=== PATIENT | male | born 1950 | race Caucasian/White ===

== ENCOUNTER 2016-09-30 21:48 | Observation (INO) ==
[2016-09-30] MEDS ORDERED: NITROGLYCERIN 2% OINT 1 INCH/GM PACK TOP STA (22:45)
[2016-09-30] MEDS ORDERED: ASPIRIN 325 MG TABLET PO STA (22:45)
[2016-09-30] MEDS ORDERED: METOPROLOL TARTRATE 25 MG TABLET PO STA (22:45)
[2016-09-30] MEDS ORDERED: ONDANSETRON 4 MG/2 ML VIAL IV STA (22:45)
[2016-09-30] MEDS ORDERED: MORPHINE 2 MG/1 ML SYRINGE IV STA (22:45)
[2016-09-30] MEDS ORDERED: ALUM/MAG/SIMETH/LIDO VISC 1:1 30 ML BOTTLE PO STA (22:45)
[2016-09-30 22:53] LABS: Basophils # 0.1 10*3/uL (0.0-0.2); Basophils % 0.9 % (0.0-0.8); Eosinophils # 0.4 10*3/uL (0.0-0.87); Eosinophils % 4.4 % (0.00-10.9); Hematocrit 29.2 VOL% (42.0-52.0); Hemoglobin 11.6 GM/DL (14.0-18.0); Immature Granulocytes % 0.4 %; Immature Granulocytes Absolute 0.03 #; Lymphocytes # 2.7 10*3/uL (1.4-4.0); Lymphocytes % 33.4 % (21.2-54.2); Mean Corpuscular HGB Conc 39.7 GM/DL (32-36); Mean Corpuscular Hemoglobin 45 PG (27-34); Mean Corpuscular Volume 112.3 FL (87-102); Mean Platelet Volume 9.1 FL (9.6-12.0); Monocytes # 0.4 10*3/uL (0.11-0.8); Monocytes % 5.2 % (1.7-12.7); Neutrophils # 4.5 10*3/uL (1.4-7.4); Neutrophils % 55.7 % (38.7-73.9); Platelet Count 223 T/CUMM (130-400); Red Cell Distribution Width 12.5 % (9.3-17.3); White Blood Count 8.1 T/CUMM (4-12)
[2016-09-30] MEDS ORDERED: NITROGLYCERIN 2% OINT 1 INCH/GM PACK TOP ONE (22:55)
[2016-09-30] MEDS ORDERED: ONDANSETRON 4 MG/2 ML VIAL ONE (22:55)
[2016-09-30] MEDS ORDERED: METOPROLOL TARTRATE 25 MG TABLET ONE (22:55)
[2016-09-30] MEDS ORDERED: MORPHINE 2 MG/1 ML SYRINGE ONE (22:56)
[2016-09-30] MEDS ORDERED: ASPIRIN 325 MG TABLET ONE (22:56)
[2016-09-30] MEDS ORDERED: ALUM/MAG/SIMETH/LIDO VISC 1:1 30 ML BOTTLE PO ONE (22:56)
[2016-09-30 23:05] LABS: D-Dimer <= 0.5 MG/L FEU; PT Patient Result 10.6 SECS
--- NOTE | 2016-09-30 23:09 | Emergency Department Note ---
IAnupama Mantricia, am scribing for, and in the presence of, Dannie Lynn MD 23:00. Leah Palmer Charles R, MD, personally performed the services described in this documentation, ascribed by Ninfa Altman in my presence, and it is both accurate and complete . Arrival - Arrival Chief Complaint: Chest Pain Stated Complaint: CHEST PAIN/HURTING BETWEEN SHOULDERS/SWEATING/DIZZ ED Nursing Triage Note: Patient to triage with c/o chest pain that started 3 days ago. Patient states the pain is off and on and radiates to his neck and in between shoulders. Patient states the pain feels like an ache and gets better when he lays down, but he "just does not feel right" ekg done in triage. Mode of Arrival: Ambulatory Limitations: No Limitations Source: Patient Time Seen by Provider: 09/30/16 22:36 - History of Present Illness HPI Narrative: Pt is a 66 y/o white male ambulating to ED with c/o chest pain that onset 3 days ago. He reports that he had a 15 minute episode where his chest began to ache and he became extremely dizzy, nauseated, and diaphoretic. states that when this episode occurred, pt was out in the chicken house and had picked up only 10 eggs when he became tired and had to sick down. Pt reports that he "thought he was a goner" and became frightened. He did not come to ED then because he has no insurance and is currently receiving disability; however, family tried there best to get pt to come to ED but was not successful in doing so. Pt has a Hx of cardiac problems and has several stents placed. He is currently taking a daily aspirin. At time of exam, pt's heart rate is 64 with a blood pressure of 142/91. He denies any pain at time of exam, but states that his chest became tight again about 2230. Pt story is compliant with possible [place]. No other complaints were reported to ED. Onset (ago): day(s) Consistency: constant Severity: moderate Allergies/Adverse Reactions: Allergies Allergy/AdvReac Type Severity Reaction Status Date / Time No Known Allergies Allergy Unverified 09/30/16 22:04 Home Medications: Home Medications Medication Instructions Recorded Confirmed Type Aspirin EC Tab 1 tablet PO DAILY 09/30/16 09/30/16 History Lovastatin 1 tablet PO DAILY 09/30/16 09/30/16 History Metoprolol Succinate Xl [Toprol Xl] 1 tablet PO DAILY 09/30/16 09/30/16 History NIFEdipine [Nifedipine ER] 1 tablet PO DAILY 09/30/16 09/30/16 History Niacin 0.5 tablet PO DAILY 09/30/16 09/30/16 History Sertraline [Zoloft] 1 tablet PO DAILY 09/30/16 09/30/16 History Review of System - Review of System 12 point system: reviewed and no additional remarkable complaints except as stated - Review of System Constitutional: Present: diaphoresis. Absent: chills Respiratory: Absent: cough Cardiovascular: Present: chest pain Gastrointestinal: Present: nausea. Absent: abdominal pain, vomiting, diarrhea Musculoskeletal: Absent: arm pain, back pain, leg pain, neck pain Neurological: Present: weakness. Absent: headache Endocrine: Present: fatigue Medical,Surgical,& Family Hx - Medical History Cardio: History of: Hypertension, [place] Psychological: History of: Depression Endocrine: History of: Dyslipidemia - Surgical History Cardiac Surgeries: Sugical HX of: Cardiac Surgery (stent placed 2001) - Social History Smoking Status: Never smoker Frequency of Alcohol Use: None Type of Drug Use: None Exam Vital Signs: Vital Signs Temperature 98.0 F 09/30/16 21:55 Pulse Rate 73 09/30/16 21:55 Respiratory Rate 19 09/30/16 22:45 Blood Pressure 174/88 09/30/16 21:55 O2 Sat by Pulse Oximetry 100 09/30/16 22:45 - General General appearance: alert, in no apparent distress, other (hard of hearing) - Head Head exam: Present: atraumatic, normocephalic - Eye Eye exam: Present: normal appearance, PERRL, EOMI - ENT ENT exam: Present: normal exam, normal oropharynx, mucous membranes moist - Neck Neck exam: Present: normal inspection - Chest Chest inspection: Present: normal inspection - Respiratory Respiratory exam: Present: rales (at base) - Cardiovascular Cardiovascular exam: Present: regular rate, normal rhythm, normal heart sounds - Abdominal Exam Abdominal exam: Present: soft, normal bowel sounds. Absent: distention, tenderness, guarding, rebound - Extremities Exam Extremities exam: Present: full ROM, other (+1 LE edema bilat). Absent: tenderness - Back Exam Back exam: Present: normal inspection - Neurological Exam Neurological exam: Present: alert, oriented X3, CN II-XII intact - Psychiatric Psychiatric exam: Present: normal affect, normal mood - Skin Skin exam: Present: warm, dry, intact, normal color Course - Consultations Consultation #1: Hospitalist will admit patient Time: 00:21 Results - Labs CBC & BMP: 09/30/16 22:44 09/30/16 22:44 Disposition Clinical Impression: Chest pain Case discussed with: patient, patient's family Disposition: Still a Patient Condition: Stable Time of Disposition: 00:21
[2016-09-30 23:18] LABS: Albumin 4.2 G/DL (3.4-5.0); Bilirubin,Total 1.3 MG/DL (0.2-1.0); Calcium 8.5 MG/DL (8.5-10.1); Magnesium 2.2 MG/DL (1.8-2.4); Osmolality,Calculated 286.3 MOS/KG (273-304); Potassium 4.1 MMOL/L (3.5-5.1); Total Protein 6.9 G/DL (6.4-8.3)
[2016-09-30 23:47] LABS: Band Neutrophils 3 % (0-10); Eosinophils 5 % (0-10); Lymphocytes 31 % (20-55); Segmented Neutrophils 60 % (50-85)
[2016-09-30 23:49] LABS: Platelet Estimate Normal; Total Cells Counted 100
[2016-10-01] MEDS ORDERED: MORPHINE 2 MG/1 ML SYRINGE IV PRN (00:20)
[2016-10-01] MEDS ORDERED: ZALEPLON 5 MG CAPSULE PO PRN (00:20)
[2016-10-01] MEDS ORDERED: ONDANSETRON 4 MG/2 ML VIAL IV PRN (00:20)
[2016-10-01] MEDS ORDERED: ENOXAPARIN 100 MG/ML SYRINGE SUBCUT STA (00:21)
[2016-10-01] MEDS ORDERED: ENOXAPARIN 120 MG/0.8 ML SYRINGE SUBCUT ONE (01:19)
--- NOTE | 2016-10-01 01:19 | Hospitalist History & Physical ---
Assessment and Plan - Time spent with patient Time spent with patient: Greater than 30 minutes (1) TONEY (acute kidney injury) Status: Acute Assessment and plan: Hydrate with normal saline, repeat chemistry in a.m. Current Visit: Yes (2) Dehydration Status: Acute Current Visit: Yes (3) HTN (hypertension) Status: Chronic Assessment and plan: Continue home medications Current Visit: Yes Qualifiers: Hypertension type: essential hypertension Qualified Code(s): I10 - Essential (primary) hypertension (4) CAD (coronary artery disease) Status: Acute Assessment and plan: Consult cardiology. Repeat cardiac enzymes. Check TSH hemoglobin A1c and lipid panel for risk stratification Current Visit: Yes Qualifiers: Coronary Disease-Associated Artery/Lesion type: hoh artery [place] vs. transplanted heart: hoh heart Associated angina: with stable angina Qualified Code(s): I25.118 - Atherosclerotic heart disease of hoh coronary artery with other forms of angina pectoris (5) Chest pain Status: Acute Current Visit: Yes Qualifiers: Ischemic chest pain type: stable angina pectoris History of Present Illness Chief complaint: Chest pain History of present illness: Mr. De Los Santos is a 66 year old male presents to ED with c/o chest pain that onset 3 days ago. He reports that he had a 15 minute episode where his chest began to ache and he became extremely dizzy, nauseated, and diaphoretic. states that when this episode occurred, pt was out in the chicken house and had picked up only 10 eggs when he became tired and had to sick down. Pt reports that he "thought he was a goner" and became frightened. He did not come to ED then because he has no insurance and is currently receiving disability; however , family tried there best to get pt to come to ED but was not successful in doing so. Pt has a Hx of cardiac problems and has several stents placed. He is currently taking a daily aspirin. He denies any pain at time of exam, but states that his chest became tight again about 0. No other complaints were reported to ED. He reports his urine has been dark in color. He also complains of feeling dizzy when he stands up. Symptoms are consistent with dehydration and postural hypotension/orthostasis. His reports that he sweats a lot and drinks Coke and soda and tea as well as water throughout the day. His symptoms yesterday scared him. He describes chest pain that radiated into his back and shoulders. It was relieved with rest. He has not seen Dr. Matt in several years. He has a history of a stent done in 2001. Primary care physician Dr. Robin primary submarine advisory team watch officer Dr. Matt Home medications reviewed and reconciled Patient is a full code He is accompanied by his and daughter. Home Medications Medication Instructions Recorded Confirmed Type Aspirin EC Tab 1 tablet PO DAILY 09/30/16 09/30/16 History Lovastatin 1 tablet PO DAILY 09/30/16 09/30/16 History Metoprolol Succinate Xl [Toprol Xl] 1 tablet PO DAILY 09/30/16 09/30/16 History NIFEdipine [Nifedipine ER] 1 tablet PO DAILY 09/30/16 09/30/16 History Niacin 0.5 tablet PO DAILY 09/30/16 09/30/16 History Sertraline [Zoloft] 1 tablet PO DAILY 09/30/16 09/30/16 History Allergies Allergy/AdvReac Type Severity Reaction Status Date / Time No Known Allergies Allergy Unverified 09/30/16 22:04 Medical,Surgical,& Family Hx - Medical History Cardio: History of: Hypertension, [place] Psychological: History of: Depression Endocrine: History of: Dyslipidemia - Surgical History Cardiac Surgeries: Sugical HX of: Cardiac Surgery (stent placed 2001) - Social History Smoking Status: Never smoker Frequency of Alcohol Use: None Type of Drug Use: None Marital Status: Lives With:: Spouse Functional capacity: independent ambulation 12 point system: reviewed and no additional remarkable complaints except as stated Exam - Constitutional Vitals: Period Temp Pulse Resp BP Sys/Delgado Pulse Ox Last 24 Hr 98.0 F-98.0 F 73-73 18-19 174-174/88-88 95-100 Exam: Constitutional System: No distress. No tremulousness. Head: Normocephalic, atraumatic. Ears, Nose and Throat System: No pain or tenderness. No epistaxis or discharge Eyes System: Pupils equal, round, and reactive. Extraocular muscles intact. Neck: Supple, without adenopathy, No jugular venous distention. No thyromegaly, neck mass, or prior surgery apparent. Respiratory System: Chest clear to auscultation. Cardiovascular System: Heart with regular rate and rhythm. No murmur. GI System: Abdomen soft, nontender. Normo active bowel sounds present. Musculoskeletal System: limbs with no pedal edema. Full distal pulses. Neurological System: No discernable sensory deficit. No aphasia Psychiatric System: Conversation is rational Results - Labs CBC & BMP: 09/30/16 22:44 09/30/16 22:44 Lab Results: I have reviewed the past 24 hour labs - Diagnostic Findings Procedure: Chest x-ray: report reviewed by me
[2016-10-01] MEDS ORDERED: SODIUM CHLORIDE 0.9% 500 ML IV STA (01:23)
[2016-10-01] MEDS: SODIUM CHLORIDE 0.9% 1,000 ML IV SCH ×4 (02:35→14:10)
--- NOTE | 2016-10-01 03:13 | EKG Report ---
Stationary ECG Study [facility] Test Date: 10/01/2016 3:09:58 AM Pat Name: VANDA GRANADOS Department: Room: 296 Gender: M Religious Education Teacher: RAFITA : 1950 Requested by: Dannie Hua Order Number: [id number] Reading MD: REX PA Intervals [place] Rate: 57 P: 39 FL: 156 QRS: 5 QRSD: 82 T: 29 QT: 417 QTc: 412 Interpretive Statements SINUS RHYTHM at 57 bpm NONSPECIFIC T-WAVE ABNORMALITY Electronically Signed On 10-01-16 07:58:53 CDT by REX PA [email or web address]
[2016-10-01 03:44] LABS: Troponin I Only < 0.015 NG/ML (0.00-0.045)
[2016-10-01 03:50] LABS: Magnesium 2.2 MG/DL (1.8-2.4); Osmolality,Calculated 287.3 MOS/KG (273-304); Risk Ratio 3.11; Thyroid Stimulating Hormone 3.39 uIU/ml (0.358-3.74); VLDL CHOLESTEROL 20.4 MG/DL
--- NOTE | 2016-10-01 05:58 | EKG Report ---
Stationary ECG Study [facility] Test Date: 09/30/2016 9:57:52 PM Pat Name: VANDA GRANADOS Department: Room: 296 Gender: M Travel Sales Consultant: Elizabeth : 1950 Requested by: Dannie Hua Order Number: [id number] Rod MD: REX PA Intervals [place] Rate: 65 P: 52 ND: 143 QRS: -3 QRSD: 98 T: 61 QT: 438 QTc: 449 Interpretive Statements SINUS RHYTHM at 65 bpm V2 lead is missed NST Electronically Signed On 10-01-16 07:55:11 CDT by REX PA [email or web address]
--- NOTE | 2016-10-01 06:50 | XRay Report ---
XR chest 1V portable Indication: Chest pain Comparison: 25 March 2013 Findings: The heart and mediastinum are normal in size and configuration. The pulmonary vascularity is normal in caliber. No lung infiltrates, effusions, pneumothorax or other abnormality is demonstrated. Impression: Normal chest x-ray PROCEDURE INTERPRETED AT [facility] OF RAD[facility] Final Report Signed by: Dr. Melvin Tomas
--- NOTE | 2016-10-01 07:47 | EKG Report ---
Stationary ECG Study [facility] Test Date: 09/30/2016 10:51:55 PM Pat Name: VANDA GRANADOS Department: Room: 296 Gender: M Tile And Marble Setter: : 1950 Requested by: Dannie Hua Order Number: [id number] Reading MD: REX PA Intervals [place] Rate: 59 P: 85 AR: 84 QRS: -9 QRSD: 86 T: 52 QT: 417 QTc: 417 Interpretive Statements SINUS RHYTHM WITH SHORT AR INTERVAL at 59 bpm NONSPECIFIC T-WAVE ABNORMALITY Electronically Signed On 10-01-16 07:56:44 CDT by REX PA [email or web address]
[2016-10-01] MEDS ORDERED: METOPROLOL SUCCINATE XL 25 MG TABLET PO SCH (09:00)
[2016-10-01] MEDS ORDERED: ASPIRIN EC 81 MG TABLET PO SCH (09:00)
[2016-10-01] MEDS: PANTOPRAZOLE 40 MG TABLET PO SCH (09:58)
[2016-10-01] MEDS: ASPIRIN EC 81 MG TABLET PO SCH (09:58)
[2016-10-01] MEDS: MULTIVITAMIN (BEROCCA) TABLET PO SCH (09:58)
[2016-10-01] MEDS: ENOXAPARIN 40 MG/0.4 ML SYRINGE SUBCUT SCH (09:59)
[2016-10-01] MEDS: LOVASTATIN 20 MG TABLET PO SCH (09:59)
[2016-10-01] MEDS: SERTRALINE 100 MG TABLET PO SCH (09:59)
[2016-10-01] MEDS: NIACIN 500 MG TABLET PO SCH (09:59)
[2016-10-01] MEDS: METOPROLOL SUCCINATE XL 25 MG TABLET PO SCH (10:05)
--- NOTE | 2016-10-01 14:29 | Hospitalist Progress Note ---
Assessment and Plan - Time spent with patient Time spent with patient: Less than 30 minutes (1) Chest pain Status: Acute Assessment and plan: 10/01/16 Verbalizes an occasional "twinge" that only last for a few seconds. He denies SOB, denies nausea or vomiting. Serial Troponin are negative. Will continue to monitor closely. Cardiology consulted and appreciate their help and recommendations with care. Will repeat a.m. labs. Current Visit: Yes Qualifiers: Ischemic chest pain type: stable angina pectoris (2) TONEY (acute kidney injury) Status: Acute Assessment and plan: 10/01/16 BUN increased to 31 from 28. Creatinine increased to 1.50 from 1.40.WIll continue hydration. Will repeat a.m. labs and will discuss with Dr Lujan for further recommendations. Current Visit: Yes (3) Dyslipidemia Status: Chronic Assessment and plan: 10/01/16 - Stable - Continue home medication. Current Visit: Yes Hospitalist: Subjective Interval history: 10/01/16 Patient seen and chart reviewed. Mr De Los Santos sitting up in chair, appears comfortable and in no distress. He reports a good night. He reports occasional a chest "twinge" only lasting for a few seconds. Denies any shortness of breath. Denies nausea or vomiting. Exam - Constitutional Vitals: Period Temp Pulse Resp BP Sys/Delgado Pulse Ox Last 24 Hr 97.6 F-98.2 F 55-73 18-20 108-174/61-88 92-100 General appearance: normal weight, no acute distress - Head Head exam: Present: normal inspection - Eye Eye exam: Present: EOMI Pupils: Present: DOMONIQUE - Neck Neck exam: Present: normal inspection - Respiratory Respiratory exam: Present: clear to auscultation bilaterally. Absent: stridor, wheezes - Cardiovascular Cardiovascular exam: Present: regular rate and rhythm - GI/Abdominal GI/Abdominal exam: Present: normal bowel sounds, soft. Absent: tenderness, rebound - Extremities Exam Extremities exam: Present: full ROM, edema - Neurological Exam Neurological exam: Present: alert, oriented X3 - Psychiatric Psychiatric exam: Present: normal affect, normal mood. Absent: agitated, anxious - Skin Skin exam: Present: normal color, warm, dry Results - Labs CBC & BMP: 09/30/16 22:44 10/01/16 02:49 Lab Results: I have reviewed the past 24 hour labs Labs: BUN increased to 31 from 28 Creatinine increased to 1.50 from 1.40 TROPININ series have been negative VITAMIN B12 - 83 A1c 5.1
[2016-10-01 15:08] LABS: Troponin I Only < 0.015 NG/ML (0.00-0.045)
--- NOTE | 2016-10-01 15:46 | Cardiology Consult Note ---
Jose Palmer Vanessa, RN, am scribing for, and in the presence of, Joe Lane MD 15 :39. Assessment and Plan - Time spent with patient Time spent with patient: Greater than 30 minutes (Due to assessment, planning, documentation, medication review) Time spent discussing smoking cessation with patient: 3 to 10 minutes (1) Chest pain Status: Acute Assessment and plan: 66-year-old male, followed by Dr. Matt. Presented with dizziness, orthostatic issues, shoulder pain, discomfort. History of CAD, PCI in 2001, report not available. So far, without ischemic EKG changes, normal cardiac biomarkers. Recently elevated blood pressures, lower extremity numbness in the toes. SHERITA, he was not tolerant of CPAP. Morbid obesity. -CAD. Low suspicion of ACS. Proceed with stress test in a.m., keep n.p.o. after midnight. -Continue aspirin, beta-bobby, statin. LDL well controlled. -SHERITA. He was intolerant of CPAP in the past. This may be readdressed, as an outpatient. -Orthostatic issues. Check echo, carotid ultrasound. D/c IVF -Cont to monitor BP on current meds Current Visit: Yes Qualifiers: Ischemic chest pain type: stable angina pectoris (2) CAD (coronary artery disease) Status: Chronic Assessment and plan: History of proximal RCA total occlusion in 2001 with subsequent stenting of proximal right coronary artery using 3.515 mm Penta stent. Repeat cath in 2002 revealed widely patent RCA stent and mild luminal irregularities of left coronary arteries. Post stenting, he was placed on Plavix for a year and a half. Continue low-dose ASA, statin, beta-bobby. Current Visit: Yes Qualifiers: Coronary Disease-Associated Artery/Lesion type: [place] artery [place] vs. transplanted heart: [place] heart Associated angina: with stable angina Qualified Code(s): I25.118 - Atherosclerotic heart disease of [place] coronary artery with other forms of angina pectoris (3) TONEY (acute kidney injury) Status: Acute Assessment and plan: Creatinine and BUN 1.4 and 70 respectively. He is being gently hydrated with IV fluids. Current Visit: Yes (4) HTN (hypertension) Status: Chronic Assessment and plan: Overall, well controlled at this time. Continue calcium channel bobby. Monitor BP and adjust medications accordingly as medical condition indicates. Current Visit: Yes Qualifiers: Hypertension type: essential hypertension Qualified Code(s): I10 - Essential (primary) hypertension (5) Dyslipidemia Status: Chronic Assessment and plan: Fasting lipid panel this morning overall unremarkable. Continue lovastatin 40 mg by mouth daily. Current Visit: Yes (6) Obstructive sleep apnea Status: Chronic Assessment and plan: He has used CPAP in the past and has been intolerant. Current sleeps elevated in recliner at night to sleep. Current Visit: Yes (7) Tobacco use Status: Chronic Assessment and plan: Greater than 5 minutes was spent discussing the importance and benefits of tobacco cessation. Patient reports that he will attempt to reduce the amount of oral tobacco he is using. Reports he current uses approximately 1 can of snuff per week. Current Visit: Yes (8) Dehydration Status: Acute Assessment and plan: Rehydrating with IV fluids. Current Visit: Yes History of Present Illness - Data of Consult Patient: known to practice within the last 3 years Consult date: 10/01/16 Requesting Physician: Jaquelin Santana - Consult Narrative Reason for consult: Chest pain History of present illness: PRIMARY SAP TREASURY CONSULTANT: DR. MATT Mr. De Los Santos 66-year-old white male with risk factor significant for: hypertension, dyslipidemia, obesity, previous history of CAD, family history of premature CAD, and current tobacco use. He also has GERD and obstructive sleep apnea, has used CPAP in the past, but due to intolerance and a period of being uninsured, he has not used it, electing to sleep elevated in a recliner. Patient underwent cardiac catheterization in June 2003 atypical indigestion, left parasternal discomfort, and abnormal treadmill. He was found to have totally occluded proximal RCA and had subsequent stenting of right coronary artery, preserved LV function with EF 50%. He had repeat cardiac cath in December 2002 for recurrent chest pain and catheter revealed widely patent RCA stent, mild luminal irregularities of left coronaries but no significant obstruction. He was then treated for dyspepsia. Patient has not seen Dr. Matt since 2014. Mr. De Los Santos presented to [facility] ED overnight with complaints of chest pain with some associated dizziness, diaphoresis, and nausea with onset 3 days ago. EKG in ER was negative for acute ischemic finding, and cardiac biomarkers were negative. Acute kidney injury with creatinine 1.4, BUN 28, and he is being treated with IV hydration. Patient was admitted by hospital medicine to telemetry unit for further observation and evaluation. Cardiology was asked to see for evaluation of chest pain. Patient seen and examined. Patient is extremely hard of hearing, and his is present at bedside to assist with exam and interview. Speaking with patient and his , he has been having anginal complaint for 3 days now. After patient woke up Thursday morning, he experienced sudden dull, aching sensation between shoulder blades with dizziness and nausea. Patient thinks this episode lasted for approximately 3-5 minutes, and resolved spontaneously. He carried on with morning activities, and around 10:30 AM, he went to the [employer] to take his and son a bottle of water, and shortly after arriving while picking up in approximately 10 days, he noticed he was experiencing recurrent pain in between shoulder blades with radiation to left neck and associated dizziness, diaphoresis, and nausea. With this episode, he reports that he had a sense of impending doom and reports he "thought he was a goner." His family insisted he be evaluated in the ER, but he refused on Thursday due to lack of medical insurance. He has continued to have these episodes and have waxed and waned. He can identify no aggravating or alleviating factors. Reports he was able to lie down flat one time while having shoulder blades, and had minimal relief. He has now had a few episodes of non-radiating parasternal chest pain, described as "stabbing," associated with some shortness of breath. Patient reports he is generally pretty active but just hasn't felt well the last few weeks. Patient's reports patient has been easily fatigued with minimal activity for approximately 2-3 weeks and has been requiring frequent rest periods. Cardiac monitoring with regular rate/rhythm, no ectopy or acute change. Serial cardiac biomarkers have been normal. Patient and his family are extremely concerned about patient's recent episodes, and they would feel more comfortable proceeding with left heart catheterization for definitive coronary assessment. CC: Eliza Lujan MD - Home Medications and Allergies Home Medications: Home Medications Medication Instructions Recorded Confirmed Type Aspirin EC Tab 1 tablet PO DAILY 09/30/16 09/30/16 History Lovastatin 1 tablet PO DAILY 09/30/16 09/30/16 History Metoprolol Succinate Xl [Toprol Xl] 1 tablet PO DAILY 09/30/16 09/30/16 History NIFEdipine [Nifedipine ER] 1 tablet PO DAILY 09/30/16 09/30/16 History Niacin 0.5 tablet PO DAILY 09/30/16 09/30/16 History Sertraline [Zoloft] 1 tablet PO DAILY 09/30/16 09/30/16 History Allergies/Adverse Reactions: Allergies Allergy/AdvReac Type Severity Reaction Status Date / Time No Known Allergies Allergy Unverified 09/30/16 22:04 12 point system: reviewed and no additional remarkable complaints except as stated - Constitutional Constitutional: Present: fatigue. Absent: anorexia, chills, fever(s), increased appetite, stops breathing during sleep, weakness, weight gain, weight loss - EENT Eyes: Absent: blurry vision, loss of vision Ears: Present: decreased hearing. 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 Absent: edema, orthopnea, palpitations, PND - Respiratory Respiratory: Present: dyspnea on exertion ([employer]OR; none currently). Absent: cough , hemoptysis - Gastrointestinal Gastrointestinal: Present: heartburn, nausea ([employer]OR; none currently). Absent: abdominal pain, bloating, constipation, diarrhea, early satiety, hematemesis, hematochezia, melena, vomiting - Genitourinary Genitourinary: Absent: difficulty urinating, dysuria, flank pain, hematuria - Musculoskeletal Musculoskeletal: Present: arthralgias. Absent: limited range of motion, myalgias - Neurological Neurological: Present: dizziness ([employer]OR; none currently). Absent: abnormal gait, abnormal speech, confusion - Psychiatric Psychiatric: Present: depression. Absent: anxiety, confusion - Endocrine Endocrine: Present: fatigue. Absent: cold intolerance, heat intolerance - Hematologic/Lymphatic Hematologic/Lymphatic: Absent: easy bleeding, easy bruising Medical,Surgical,& Family Hx - Medical History Cardio: History of: CAD, Hypertension, PA No history of: Cardiac Dysrhythmia Psychological: History of: Depression Neurology: No history of: Cerebrovascular Accident, Dementia, TIA HEENT: History of: Ear Problem (Hard of hearing) Endocrine: History of: Dyslipidemia No history of: Diabetes Mellitus (IDDM), Diabetes Mellitus (NIDDM), Thyroid Disorder Respiratory: History of: Obstructive Sleep Apnea No history of: Bronchitis, COPD, Pulmonary Hypertension Renal: No history of: Renal Problems Gastrointestinal: History of: GERD No history of: Gastrointestinal Bleed, Hepatitis Musculoskeletal: No history of: Back/Neck Problems, Musculoskeletal Problems Hematology: No history of: Anemia, Blood Transfusion Reaction Other: No history of: Cancer - Surgical History Cardiac Surgeries: Sugical HX of: Cardiac Catheterization Patient Denies: Carotid Endarterectomy, Internal Defibrillator - Family History Family History: Reports;: Family Diabetes, Family Heart Disease, Family Hypertension - Social History Smoking Status: Current every day smoker (Oral tobacco) Time spent discussing smoking cessation with patient: 3 to 10 minutes Frequency of Alcohol Use: None Type of Drug Use: None Marital Status: Lives With:: Spouse Functional capacity: independent ambulation Physical Examination Vital Signs Temp Pulse Resp BP Pulse Ox 98.0 F 73 18 174/88 95 09/30/16 21:55 09/30/16 21:55 09/30/16 21:55 09/30/16 21:55 09/30/16 21:55 General: Present: No Apparent Distress, Other (pleasant & cooperative; overweight) HEENT: Present: Normocephaly. Absent: Pallor Neck: Present: Supple Neck, Midline Trachea, No JVD/HJR, No Masses, No Bruit Cardiac: Present: Reg Rate and Rhythm, No Murmur. Absent: Tachycardia, Bradycardia Lungs: Present: Clear Ascult./Percussion, No Wheeze, Rales, Rhonchi. Absent: Oxygen Neuro: Present: Grossly Intact. Absent: Numbness, Tingling, Weakness, Resting Tremor, Essential Tremor Abdomen: Present: Soft, Active Bowel Sounds, Other (obese) Skin: Present: Clear. Absent: Rash, Suspicious Lesions, Ulceration, Bruising Musculoskeletal: Present: No Fluid Collection, Normal Range of Motion Extremities: Present: No Clubbing, No Cyanosis, No Edema, Normal Upper Extr. Pulses (3+ bilaterally), Normal Lower Extr. Pulses (3+ bilaterally), Capillary Refill (Normal), Other (Warm, dry, intact). Absent: Petechiae Result/EKG - Labs CBC & BMP: 09/30/16 22:44 10/01/16 02:49 Lab Results: I have reviewed the past 24 hour labs Labs: Laboratory Results - last 24 hr 09/30/16 09/30/16 09/30/16 22:44 22:44 22:44 WBC RBC Hgb Hct MCV MCH MCHC RDW Plt Count MPV Neut % (Auto) Lymph % (Auto) [facility] % (Auto) Eos % (Auto) Baso % (Auto) Neut # (Auto) Lymph # (Auto) [facility] # (Auto) Eos # (Auto) Baso # (Auto) Total Counted Immature Gran % Nucleated RBC % Immature Gran # Segmented Neutrophils Band Neutrophils Lymphocytes Monocytes Eosinophils Nucleated RBCs # Platelet Estimate Immature Plt Fraction INR 1.0 PT Patient/Control Mix 10.6 D-Dimer, Quantitative <= 0.5 Sodium 141 Potassium 4.1 Chloride 106 Carbon Dioxide 26 Anion Gap 13.1 BUN 28 H Creatinine 1.40 H GFR Calculation 70 BUN/Creatinine Ratio 20.00 Glucose 100 Hemoglobin A1c Calculated Osmolality 286.3 Calcium 8.5 Magnesium 2.2 Total Bilirubin 1.30 H AST 24 ALT 34 Alkaline Phosphatase 65 Total Creatine Kinase CK-MB (CK-2) Troponin I B-Natriuretic Peptide 30 Total Protein 6.9 Albumin 4.2 Globulin 2.7 Albumin/Globulin Ratio 1.5 Triglycerides Cholesterol LDL Cholesterol VLDL Cholesterol HDL Cholesterol Heart Disease Risk Ratio Lipase 233.0 Vitamin B12 Free T4 TSH 3rd Generation 09/30/16 09/30/16 10/01/16 22:44 22:44 02:49 WBC 8.1 RBC 2.60 L Hgb 11.6 L Hct 29.2 L MCV 112.3 H MCH 45 H MCHC 39.7 H RDW 12.5 Plt Count 223 MPV 9.1 L Neut % (Auto) 55.7 Lymph % (Auto) 33.4 [facility] % (Auto) 5.2 Eos % (Auto) 4.4 Baso % (Auto) 0.9 H Neut # (Auto) 4.5 Lymph # (Auto) 2.7 [facility] # (Auto) 0.4 Eos # (Auto) 0.4 Baso # (Auto) 0.1 Total Counted 100 Immature Gran % 0.4 Nucleated RBC % 0.0 Immature Gran # 0.03 Segmented Neutrophils 60 Band Neutrophils 3 Lymphocytes 31 Monocytes 1 L Eosinophils 5 Nucleated RBCs # 0.00 Platelet Estimate Normal Immature Plt Fraction 0.0 INR PT Patient/Control Mix D-Dimer, Quantitative Sodium Potassium Chloride Carbon Dioxide Anion Gap BUN Creatinine GFR Calculation BUN/Creatinine Ratio Glucose Hemoglobin A1c Calculated Osmolality Calcium Magnesium Total Bilirubin AST ALT Alkaline Phosphatase Total Creatine Kinase CK-MB (CK-2) Troponin I < 0.015 < 0.015 B-Natriuretic Peptide Total Protein Albumin Globulin Albumin/Globulin Ratio Triglycerides Cholesterol LDL Cholesterol VLDL Cholesterol HDL Cholesterol Heart Disease Risk Ratio Lipase Vitamin B12 Free T4 TSH 3rd Generation 10/01/16 10/01/16 10/01/16 02:49 02:49 02:49 WBC RBC Hgb Hct MCV MCH MCHC RDW Plt Count MPV Neut % (Auto) Lymph % (Auto) [facility] % (Auto) Eos % (Auto) Baso % (Auto) Neut # (Auto) Lymph # (Auto) [facility] # (Auto) Eos # (Auto) Baso # (Auto) Total Counted Immature Gran % Nucleated RBC % Immature Gran # Segmented Neutrophils Band Neutrophils Lymphocytes Monocytes Eosinophils Nucleated RBCs # Platelet Estimate Immature Plt Fraction INR PT Patient/Control Mix D-Dimer, Quantitative Sodium 141 Potassium 4.0 Chloride 106 Carbon Dioxide 28 Anion Gap 11.0 BUN 31 H Creatinine 1.50 H GFR Calculation 65 BUN/Creatinine Ratio 20.00 Glucose 96 Hemoglobin A1c Calculated Osmolality 287.3 Calcium 8.0 L Magnesium 2.2 Total Bilirubin AST ALT Alkaline Phosphatase Total Creatine Kinase CK-MB (CK-2) Troponin I B-Natriuretic Peptide Total Protein Albumin Globulin Albumin/Globulin Ratio Triglycerides 102 Cholesterol 115 LDL Cholesterol 63.0 VLDL Cholesterol 20.4 HDL Cholesterol 37 L Heart Disease Risk Ratio 3.11 Lipase Vitamin B12 83 L Free T4 1.00 TSH 3rd Generation 3.390 10/01/16 10/01/16 10/01/16 02:49 02:49 04:15 WBC RBC Hgb Hct MCV MCH MCHC RDW Plt Count MPV Neut % (Auto) Lymph % (Auto) [facility] % (Auto) Eos % (Auto) Baso % (Auto) Neut # (Auto) Lymph # (Auto) [facility] # (Auto) Eos # (Auto) Baso # (Auto) Total Counted Immature Gran % Nucleated RBC % Immature Gran # Segmented Neutrophils Band Neutrophils Lymphocytes Monocytes Eosinophils Nucleated RBCs # Platelet Estimate Immature Plt Fraction INR PT Patient/Control Mix D-Dimer, Quantitative Sodium Potassium Chloride Carbon Dioxide Anion Gap BUN Creatinine GFR Calculation BUN/Creatinine Ratio Glucose Hemoglobin A1c 5.1 Calculated Osmolality Calcium Magnesium Total Bilirubin AST ALT Alkaline Phosphatase Total Creatine Kinase 25 L CK-MB (CK-2) < 1.0 Troponin I < 0.015 < 0.015 B-Natriuretic Peptide Total Protein Albumin Globulin Albumin/Globulin Ratio Triglycerides Cholesterol LDL Cholesterol VLDL Cholesterol HDL Cholesterol Heart Disease Risk Ratio Lipase Vitamin B12 Free T4 TSH 3rd Generation - Diagnostic Findings Procedure: Chest x-ray: image reviewed by me, report reviewed by me - EKG EKG results: interpreted by me, no acute changes EKG shows: sinus rhythm Ariana Palmer Attila, MD, personally performed the services described in this documentation, ascribed by Radha Garcia RN in my presence, and it is both accurate and complete [id number] .
--- NOTE | 2016-10-01 17:20 | Ultrasound Report ---
Exam:US carotid duplex BI Date:10/01/2016 3:36 PM Indication: Dizziness. Technique:Grayscale color flow analysis and spectral analysis imaging was performed with image stored and captured. Findings: No significant plaque deposition is demonstrated within either of the carotid arteries. Antegrade flow is present bilaterally in the vertebral arteries. The external carotid arteries are patent. Right Side Flow velocities centimeters per second Common carotid artery:75.5 Proximal ICA:84.4 Distal ICA:72.6 External carotid artery:97.4 Vertebral artery:58.6 ICA/CCA ratio: Left SIde Flow velocities centimeters per second Common carotid artery 110.0 Proximal ICA:88.4 Distal ICA:80.5 External carotid artery:90.3 Vertebral artery:60.8 ICA/CCA ratio: Impression: 1. Less than 50% stenosis is estimated to involve either the carotid arteries. 2. Normal antegrade flow is noted within the vertebral arteries. Today studies were performed utilizing indirect NASCET criteria 10/01/2016 5:17 PM PROCEDURE INTERPRETED AT [facility] DEPARTMENT OF RADIOLOGY Final Report Signed by: Dr. Raúl Pollard
[2016-10-02 06:24] LABS: Basophils % 0.8 % (0.0-0.8); Eosinophils # 0.3 10*3/uL (0.0-0.87); Eosinophils % 5.6 % (0.00-10.9); Immature Granulocytes % 0.8 %; Immature Granulocytes Absolute 0.04 #; Lymphocytes # 1.8 10*3/uL (1.4-4.0); Lymphocytes % 34.8 % (21.2-54.2); Mean Corpuscular HGB Conc 39.3 GM/DL (32-36); Mean Corpuscular Hemoglobin 44 PG (27-34); Mean Platelet Volume 9.3 FL (9.6-12.0); Monocytes # 0.4 10*3/uL (0.11-0.8); Monocytes % 6.8 % (1.7-12.7); Neutrophils # 2.7 10*3/uL (1.4-7.4); Neutrophils % 51.2 % (38.7-73.9); Platelet Count 190 T/CUMM (130-400); Red Blood Count 2.41 MC/CUMM (3.8-5.5); Red Cell Distribution Width 12.4 % (9.3-17.3); White Blood Count 5.2 T/CUMM (4-12)
[2016-10-02 06:42] LABS: Magnesium 2.6 MG/DL (1.8-2.4); Osmolality,Calculated 286.1 MOS/KG (273-304); Potassium 4.2 MMOL/L (3.5-5.1)
[2016-10-02 07:02] LABS: Hemoglobin 10.6 GM/DL (14.0-18.0)
[2016-10-02 07:13] LABS: Macrocytosis Slight; Platelet Estimate Adequate
--- NOTE | 2016-10-02 09:17 | Event Note ---
Patient underwent cardiac stress testing. He achieved target heart rate Via Adalid protocol without difficulty. Patient did not have any significant ST changes. No arrhythmias. Tolerated well without experiencing chest pain, heaviness or tightness. Did experience moderate dyspnea on exertion. Exercise tolerance was fair, reaching 7.0 mets. Heart rate and blood pressure responded appropriately to exercise. Patient is now on to final nuclear scan. Dr. Lane to read, interpret in advise.
[2016-10-02] MEDS: PANTOPRAZOLE 40 MG TABLET PO SCH (10:31)
[2016-10-02] MEDS: NIACIN 500 MG TABLET PO SCH (10:31)
[2016-10-02] MEDS: MULTIVITAMIN (BEROCCA) TABLET PO SCH (10:31)
[2016-10-02] MEDS: LOVASTATIN 20 MG TABLET PO SCH (10:32)
[2016-10-02] MEDS: METOPROLOL SUCCINATE XL 25 MG TABLET PO SCH (10:32)
[2016-10-02] MEDS: SERTRALINE 100 MG TABLET PO SCH (10:32)
[2016-10-02] MEDS: ENOXAPARIN 40 MG/0.4 ML SYRINGE SUBCUT SCH (10:32)
[2016-10-02] MEDS: ASPIRIN EC 81 MG TABLET PO SCH (10:32)
[2016-10-02] MEDS ORDERED: POTASSIUM CHLORIDE RIDER 10 MEQ in PREMIX 1 EACH IV PRN (13:36)
[2016-10-02] MEDS ORDERED: MAGNESIUM SULF RIDER 2 GM in PREMIX 1 EACH IV PRN (13:36)
--- NOTE | 2016-10-02 13:49 | Cardiology Progress Note ---
Jose Palmer Vanessa, RN, am scribing for, and in the presence of, Joe Lane MD 13 :41. Assessment and Plan - Time spent with patient Time spent with patient: Greater than 30 minutes Time spent discussing smoking cessation with patient: 3 to 10 minutes (1) Chest pain Status: Acute Assessment and plan: 66-year-old male, followed by Dr. Matt. Presented with dizziness, orthostatic issues, shoulder pain, discomfort. History of CAD, PCI in 2001 with RCA stent. No ischemic EKG changes, normal cardiac biomarkers. Recently elevated blood pressures, lower extremity numbness in the toes. SHERITA, he was not tolerant of CPAP. Morbid obesity. 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 -His transient, but severe symptoms are suspicious for arrhythmia, potentially VT, has prior OH. Although the stress test is not high risk, but will need to evaluate for ischemia. He would like to finish up the workup here, we discussed options, we will plan for cardiac catheterization in a.m., we will get interventional consult, Dr. Bhatt. -Macrocytic anemia. He is getting p.o. vitamins, we will start IM vitamin B12. May need GI, hematological workup -Continue aspirin, beta-bobby, statin. LDL well controlled. -SHERITA. He was intolerant of CPAP in the past. This may be readdressed, as an outpatient. -Orthostatic issues. Diastolic dysfunction on echo. Carotid doppler with no significant ICA stenosis. -Cont to monitor BP on current meds -Will need to be discharged after ischemic evaluation with a 30 day event recorder, follow-up with Dr. Matt. Current Visit: Yes Qualifiers: Ischemic chest pain type: stable angina pectoris (2) CAD (coronary artery disease) Status: Chronic Assessment and plan: History of proximal RCA total occlusion in 2001 with subsequent stenting of proximal right coronary artery using 3.515 mm Penta stent. Repeat cath in 2002 revealed widely patent RCA stent and mild luminal irregularities of left coronary arteries. Post stenting, he was placed on Plavix for a year and a half. Continue low-dose ASA, statin, beta-bobby. Current Visit: Yes Qualifiers: Coronary Disease-Associated Artery/Lesion type: [place] artery [place] vs. transplanted heart: [place] heart Associated angina: with stable angina Qualified Code(s): I25.118 - Atherosclerotic heart disease of [place] coronary artery with other forms of angina pectoris (3) TONEY (acute kidney injury) Status: Acute Assessment and plan: Creatinine and BUN 1.4 and 70 respectively. He is being gently hydrated with IV fluids. Current Visit: Yes (4) HTN (hypertension) Status: Chronic Assessment and plan: Overall, well controlled at this time. Continue calcium channel bobby. Monitor BP and adjust medications accordingly as medical condition indicates. Current Visit: Yes Qualifiers: Hypertension type: essential hypertension Qualified Code(s): I10 - Essential (primary) hypertension (5) Dyslipidemia Status: Chronic Assessment and plan: Fasting lipid panel this morning overall unremarkable. Continue lovastatin 40 mg by mouth daily. Current Visit: Yes (6) Obstructive sleep apnea Status: Chronic Assessment and plan: He has used CPAP in the past and has been intolerant. Current sleeps elevated in recliner at night to sleep. Current Visit: Yes (7) Tobacco use Status: Chronic Assessment and plan: Greater than 5 minutes was spent discussing the importance and benefits of tobacco cessation. Patient reports that he will attempt to reduce the amount of oral tobacco he is using. Reports he current uses approximately 1 can of snuff per week. Current Visit: Yes (8) Dehydration Status: Acute Assessment and plan: Rehydrating with IV fluids. Current Visit: Yes Cardiology - PN: Subj Interval history: PRIMARY SPECIAL PROCEDURES TECHNOLOGIST: DR. MATT SUMMARY: Mr. De Los Santos, 66-year-old WM, with risk factors significant for: Hypertension, dyslipidemia, obesity, personal history of CAD, family history of premature CAD , and current tobacco use patient also has history of GERD and SHERITA, currently not using CPAP. He had percutaneous coronary intervention and June 2003 with stent placement of proximal right coronary artery, preserved LV function, EF 50% . Repeat cardiac cath in December 2002 for recurrent chest pain revealed widely patent RCA stent, mild luminal irregularities of left coronaries, but no significant obstruction. He was treated for dyspepsia, and he has not seen Dr. Matt since 2014. He is now admitted to [facility] telemetry after presenting to ED on September 30 reporting 3 days of intermittent episodes of chest pain, with some associated dizziness, diaphoresis, nausea, and pain between shoulder blades EKG and serial cardiac biomarkers have been negative. He also had initial acute kidney injury and has been treated with IV fluids. Cardiology asked to see to evaluate chest pain. September: Mr. De Los Santos is pleasant this morning, AAO x 3. No further CP, dyspnea, or other complaint. Patient underwent cardiac stress testing earlier this morning. He had no chest pain or significant EKG changes but did have moderate exertional dyspnea. Awaiting final results. Cardiac biomarkers have remained normal. Creatinine improved today, 1.2. Sinus rhythm with HR 60s per tele. No ectopy or dysrhythmia. Exam (Progress Note) - Constitutional Vitals: Period Temp Pulse Resp BP Sys/Delgado Pulse Ox Last 24 Hr 96.9 F-99.3 F 51-65 18-24 129-148/65-73 94-98 Exam: General: Present: No Apparent Distress, Other (pleasant & cooperative; overweight) HEENT: Present: Normocephaly. Absent: Pallor Neck: Present: Supple Neck, Midline Trachea, No JVD/HJR, No Masses, No Bruit Cardiac: Present: Reg Rate and Rhythm, No Murmur. Absent: Tachycardia, Bradycardia Lungs: Present: Clear Ascult./Percussion, No Wheeze, Rales, Rhonchi. Absent: Oxygen Neuro: Present: Grossly Intact. Absent: Numbness, Tingling, Weakness, Resting Tremor, Essential Tremor Abdomen: Present: Soft, Active Bowel Sounds, Other (obese) Skin: Present: Clear. Absent: Rash, Suspicious Lesions, Ulceration, Bruising Musculoskeletal: Present: No Fluid Collection, Normal Range of Motion Extremities: Present: No Clubbing, No Cyanosis, No Edema, Normal Upper Extr. Pulses (3+ bilaterally), Normal Lower Extr. Pulses (3+ bilaterally), Capillary Refill (Normal), Other (Warm, dry, intact). Absent: Petechiae Result/EKG - Labs CBC & BMP: 10/02/16 05:49 10/02/16 05:49 Lab Results: I have reviewed the past 24 hour labs Labs: Laboratory Results - last 24 hr 10/01/16 10/02/16 10/02/16 14:17 05:49 05:49 WBC 5.2 D RBC 2.41 L Hgb 10.6 L Hct 27.0 L MCV 112.0 H MCH 44 H MCHC 39.3 H RDW 12.4 Plt Count 190 MPV 9.3 L Neut % (Auto) 51.2 Lymph % (Auto) 34.8 [place] % (Auto) 6.8 Eos % (Auto) 5.6 Baso % (Auto) 0.8 Neut # (Auto) 2.7 Lymph # (Auto) 1.8 [place] # (Auto) 0.4 Eos # (Auto) 0.3 Baso # (Auto) 0.0 Immature Gran % 0.8 Nucleated RBC % 0.0 Immature Gran # 0.04 Nucleated RBCs # 0.00 Platelet Estimate Adequate Immature Plt Fraction 0.0 Macrocytosis Slight Sodium 142 Potassium 4.2 Chloride 107 Carbon Dioxide 28 Anion Gap 11.2 BUN 25 H Creatinine 1.20 GFR Calculation 85 BUN/Creatinine Ratio 20.00 Glucose 99 Calculated Osmolality 286.1 Calcium 9.0 Magnesium 2.6 H Total Creatine Kinase 31 L D CK-MB (CK-2) < 1.0 Troponin I < 0.015 - EKG EKG results: interpreted by me, no acute changes EKG shows: sinus rhythm Ariana Palmer Attila, MD, personally performed the services described in this documentation, ascribed by Radha Garcia RN in my presence, and it is both accurate and complete [id number] .
--- NOTE | 2016-10-02 13:49 | ECHO Report ---
Sai De Los Santos Exam Date: 10/02/2016 09:23 Referring Physician: Technologist: Age: 66 Ht (in): Wt (lb): Gender: M Exam Location: [facility] Echo Indications: BP: / HR: Rhythm: Sinus Technical Quality: IMPRESSIONS Normal left ventricular size, with mild concentric hypertrophy, with normal systolic function. Estimated left ventricle ejection fraction 60%. Grade 2 diastolic dysfunction. Mild left atrial enlargement. Mild aortic valve insufficiency. Mild pulmonary hypertension. Mild pulmonic valve insufficiency. MEASUREMENTS (Male / Female) Normal Values 2D ECHO LV Diastolic Diameter PLAX 5.2 cm 4.2 - 5.9 / 3.9 - 5.3 cm LV Systolic Diameter PLAX 2.3 cm LV Fractional Shortening PLAX 55.5 % IVS Diastolic Thickness 1.0 cm 0.6 - 1.0 / 0.6 - 0.9 cm LVPW Diastolic Thickness 1.1 cm 0.6 - 1.0 / 0.6 - 0.9 cm RV Internal Dim ED PLAX 4.9 cm Aortic Root Diameter 3.6 cm LA Systolic Diameter LX 4.0 cm 3.0 - 4.0 / 2.7 - 3.8 cm DOPPLER TR Peak Velocity 312.0 cm/s TR Peak Gradient 38.9 mmHg FINDINGS Left Ventricle Normal left ventricular size, with mild concentric hypertrophy, with a normal systolic function. Estimated left ventricle ejection fraction 60%. Grade 2 diastolic dysfunction. Right Ventricle Normal right ventricle size and systolic function. Right Atrium Normal right atrial size. Left Atrium The left ventricle is mildly enlarged. Mitral Valve Structurally normal mitral valve, with trace insufficiency, without stenosis. Aortic Valve Structurally normal aortic valve, with mild insufficiency, without stenosis. Tricuspid Valve Structurally normal tricuspid valve, with a mild insufficiency, without stenosis. Estimated pulmonary artery systolic pressure 39 mmHg plus RA pressure. Pulmonic Valve Structurally normal pulmonic valve, with mild insufficiency, without stenosis. Pericardium No pericardial effusion. Aorta The aortic root is of normal size. Joe Lane (Electronically Signed) Final Date: 02 October 2016 13:47
[2016-10-02] MEDS ORDERED: CYANOCOBALAMIN 1000 MCG/1 ML VIAL IM ONE (14:00)
--- NOTE | 2016-10-02 15:54 | Nuclear Medicine Report ---
EXERCISE STRESS TEST REPORT The report interpreted and dictated by Dr. Joe Lane. INDICATION: Chest pain. PROCEDURE: At rest, 10 mCi of 99-Technetium labeled Sestamibi was injected and rest images were obtained. The patient then exercised according to the Adalid treadmill stress protocol. At peak stress, 30 mCi of 99-Technetium labeled Sestamibi was injected and post stress images were reviewed. FINDINGS: At baseline, sinus rhythm, 65 beats per minute, blood pressure 104/ [address]-T changes. The patient exercised for 5 minutes 59 seconds, achieving a peak heart rate of 166 beats per minute, 89% of the maximum , age-predicted heart rate. The peak blood pressure was 160/[address]-T changes were noted. The patient had mild dyspnea on exertion. The stress test terminated due to the achieving the submaximal heart rate response. The peak exertion was 7.0 METS. Rest and post stress gated and perfusion images were reviewed. There are no significant motion artifacts. The end-diastolic volume is 142 cc, the end-systolic volume 66 cc, the calculated left ventricular ejection fraction is 56%. There are no segmental wall motion abnormalities. There is a large area in the inferior wall, of moderately decreased activity both at rest and post stress, given the patient's history of right coronary artery occlusion; this is remarkably representing old myocardial disease, even without evidence of focal wall motion abnormality on gated images. The apex is mildly photopenic at rest, becomes moderately photopenic post stress, suggestive of myocardial ischemia. CONCLUSION: 1. CLINICALLY AND ELECTRICALLY NEGATIVE SUBMAXIMAL EXERCISE STRESS TEST. FAIR EXERCISE TOLERANCE. DIALLO TREADMILL STRESS SCORE 6. 2. NORMAL LEFT VENTRICULAR SIZE, WITH PRESERVED SYSTOLIC FUNCTION. OLD MYOCARDIAL DISEASE OF THE INFERIOR WALL, WITH MODERATE ISCHEMIA IN THE APICAL REGION. 3. THIS IS A MODERATE RISK TEST. Procedure performed and interpreted at [facility] Department of Radiology. [facility]
--- NOTE | 2016-10-02 16:19 | Hospitalist Progress Note ---
Assessment and Plan (1) Chest pain Status: Acute Assessment and plan: 1)chest pain with abnormal stress test- cardiac cath in am. Continue risk factor modification with tobacco cessation counselling (7 minutes), statin, antiHTNs. He has coronary artery disease with stent in 2001 of RCA. On asa, betablocker. 2)morbid obesity 3)TONEY- baseline unknown, creatinine 1.4, on IVF. 4)SHERITA- outpatient eval Current Visit: Yes Qualifiers: Ischemic chest pain type: stable angina pectoris (2) TONEY (acute kidney injury) Status: Acute Current Visit: Yes (3) HTN (hypertension) Status: Chronic Current Visit: Yes Qualifiers: Hypertension type: essential hypertension Qualified Code(s): I10 - Essential (primary) hypertension (4) CAD (coronary artery disease) Status: Chronic Current Visit: Yes Qualifiers: Coronary Disease-Associated Artery/Lesion type: [place] artery [place] vs. transplanted heart: [place] heart Associated angina: with stable angina Qualified Code(s): I25.118 - Atherosclerotic heart disease of [place] coronary artery with other forms of angina pectoris (5) Obstructive sleep apnea Status: Chronic Current Visit: Yes (6) Tobacco use Status: Chronic Current Visit: Yes Hospitalist: Subjective Interval history: Mr De Los Santos had a stress test with mild apical ischemia and given his level of concern and severity of symptoms "I thought I was a goner" he will have cardiac cath tomorrow. He was up in his room holding and playing with his grandson when I saw him earlier and denies further chest pain since admission. Exam - Constitutional Vitals: Period Temp Pulse Resp BP Sys/Delgado Pulse Ox Last 24 Hr 96.9 F-99.3 F 51-65 18-24 129-148/62-73 94-98 General appearance: no acute distress, morbidly obese - Head Head exam: Present: normocephalic, atraumatic - Eye Eye exam: Present: EOMI. Absent: scleral icterus - Respiratory Respiratory exam: Present: clear to auscultation bilaterally - Cardiovascular Cardiovascular exam: Present: regular rate and rhythm - GI/Abdominal GI/Abdominal exam: Present: normal bowel sounds, soft. Absent: tenderness - Extremities Exam Extremities exam: Present: edema - Back Exam Back exam: Present: other (complains of pain around waist on the left sometimes. on exam he is not tender in those muscles or his vertebra. No skin changes. no numbness or weakness in his leg. ) - Neurological Exam Neurological exam: Present: alert, oriented X3 Results - Labs CBC & BMP: 10/02/16 05:49 10/02/16 05:49 Lab Results: I have reviewed the past 24 hour labs
--- NOTE | 2016-10-02 16:52 | Event Note ---
Patient known coronary disease previously. The patient had stress test today with some inferior abnormalities. The patient is for cardiac catheterization tomorrow. I discussed heart catheterization with the patient and his and grandson. I reviewed the indication procedure as well as how would be carried out the risk. We will plan on approaching this from the right radial artery. I discussed cardiac catheterization and percutaneous coronary intervention with the patient and available family. I reviewed with them the indications for the procedure and the basis of how the procedure would be carried out. I also reviewed with them the risk of the procedure which include but not necessarily limited to access site bleeding, bruising, pain, swelling or vascular injury that may require emergency vascular surgery, blood transfusion, or thrombin injection. Also discussed the possibility of stroke, myocardial infarction, arrhythmia which may require electrocardioversion, and the possibility of dye reaction that would require medical therapy. Also discussed the possibility of coronary artery injury, ruptured, closure or perforation that may require emergency bypass surgery. We also discussed the possibility of from a major complication. Their questions were answered. They voice understanding and agree to proceed. We will plan on carrying this out in the morning.
[2016-10-03 04:45] LABS: Basophils % 0.6 % (0.0-0.8); Eosinophils # 0.3 10*3/uL (0.0-0.87); Eosinophils % 4.8 % (0.00-10.9); Hematocrit 27.1 VOL% (42.0-52.0); Hemoglobin 10.3 GM/DL (14.0-18.0); Immature Granulocytes % 0.6 %; Immature Granulocytes Absolute 0.04 #; Lymphocytes # 2.2 10*3/uL (1.4-4.0); Lymphocytes % 34.5 % (21.2-54.2); Mean Corpuscular Hemoglobin 43 PG (27-34); Mean Corpuscular Volume 113.9 FL (87-102); Mean Platelet Volume 9.7 FL (9.6-12.0); Monocytes # 0.5 10*3/uL (0.11-0.8); Monocytes % 7.1 % (1.7-12.7); Neutrophils # 3.4 10*3/uL (1.4-7.4); Neutrophils % 52.4 % (38.7-73.9); Platelet Count 191 T/CUMM (130-400); Red Blood Count 2.38 MC/CUMM (3.8-5.5); Red Cell Distribution Width 12.5 % (9.3-17.3); White Blood Count 6.5 T/CUMM (4-12)
[2016-10-03 05:25] LABS: Calcium 8.9 MG/DL (8.5-10.1); Magnesium 2.6 MG/DL (1.8-2.4); Osmolality,Calculated 289.8 MOS/KG (273-304); Potassium 4.2 MMOL/L (3.5-5.1)
[2016-10-03 05:42] LABS: Macrocytosis Slight; Platelet Estimate Adequate
--- NOTE | 2016-10-03 06:42 | History and Physical Update ---
Sedation H&P Update - History and Physical H&P was reviewed, the patient examined and there: are no changes in the patients condition since last H&P was completed. - Dictation Physical: refer to H&P completed by admitting physician - Physical Exam Mental Status: alert and oriented Heart: regular rate and rhythm Lung: clear to auscultation Abdomen: within normal limits Vitals: within normal limits History and Physical Changes: None - Sedation Plan for Sedation: moderate Patient Consent: Procedure disscussed with patient and patinet has consented., Risks and benefits were discussed with patient,including infection,, bleeding, injury to surrounding structures, seizure, temporary nerve, Patient understands and accepts potential risks/benefits and agrees to, proceed. ASA Class: III Airway Assessment: Class III: Soft palate, base of uvula visible
--- NOTE | 2016-10-03 06:42 | Event Note ---
Patient stable this morning again discussed heart catheterization where he and his . They voice understanding the indications benefits and risks. We will proceed this morning with catheterization possible percutaneous coronary intervention.
[2016-10-03] MEDS ORDERED: SODIUM CHLORIDE 0.9% 1,000 ML IV SCH (07:00)
[2016-10-03] MEDS ORDERED: diphenhydrAMINE CAP 25 MG CAPSULE PO ONE (07:00)
[2016-10-03] MEDS ORDERED: DIAZEPAM 5 MG TABLET PO ONE (07:00)
[2016-10-03] MEDS ORDERED: VERAPAMIL 5 MG/2 ML VIAL ONE (07:47)
[2016-10-03] MEDS ORDERED: NITROGLYCERIN DRIP 50 MG/250 ML BOTTLE IV ONE (07:47)
[2016-10-03] MEDS ORDERED: LIDOCAINE 1% 20 ML VIAL ONE (07:47)
[2016-10-03] MEDS ORDERED: fentaNYL 100 MCG/2 ML VIAL ONE (07:49)
[2016-10-03] MEDS ORDERED: MIDAZOLAM 2 MG/2 ML VIAL ONE (07:49)
[2016-10-03] MEDS ORDERED: ENOXAPARIN 30 MG/0.3 ML SYRINGE ONE (08:07)
--- NOTE | 2016-10-03 08:26 | Operative Note ---
Date of procedure: 10/03/16 Procedure Preformed: Left heart catheterization with out LV gram with selective left and right coronary angiograms. Right radial approach. Surgeon / Physician: Nick Bhatt Applications Support Specialist: Nataliia Jurado Post-op diagnosis: same Findings: The patient's right lower coronaries are widely patent luminal irregularities. The right coronary stent is patent. Discussed findings immediately post procedure with the family. Specimens: none sent Estimated blood loss: minimal Condition: stable Anesthesia: local, conscious sedation Disposition: floor
--- NOTE | 2016-10-03 08:56 | Cardiac Catheterization ---
Date of Procedure:: 10/03/16 Pre-op Diagnosis: CAD, chest pain dyspnea, abnormal cardiac perfusion study Post-op diagnosis: same Procedure: LEFT HEART CATHETERIZATION History: 66-year-old man with known coronary disease having stent placed RCA previously. Now with chest pain dyspnea on exertion fatigability. He had abnormal cardiac perfusion study. He is for cardiac catheterization for diagnostic evaluation. Pre-Op diagnosis: Chest pain and dyspnea with abnormal SPECT scan. Known coronary disease. Postoperative diagnosis: Coronary is widely patent irregularities and no disease to account for symptomatology. Procedures: 1. Left heart catheterization 2. Selective left and right coronary angiograms. 3. Left internal mammary artery angiogram. Equipment: Terumo 6 Japanese radial glide arterial sheath, Terumo 6 Japanese radial TIG 4.0 diagnostic. Medium/Large TR band. Medications: Preoperative Benadryl and Valium given by mouth. Lidocaine 1% local anesthesia 1 mls administered by myself. Intraprocedure patient received Versed 2 mgs IVP, fentanyl 100 mcgs IVP, Verapamil 5 mg/NTG 200 mcg in 5 ml NS; Lovenox 30 mgs IVP. Complications: None immediate. Contrast: Omnipaque 44 milliliters. Description of procedure: After informed consent the patient was given preoperative medications and brought to the catheterization laboratory where their right groin and right anterior wrist and forearm was prepped and draped in usual fashion. IV sedation was then obtained after which local anesthesia with lidocaine was administered over the right radial artery. Using the double wall needle the radial artery was cannulated. Microguidewire was advanced through the cannula into the radial artery. We exchanged for the radial artery sheath that was advanced over the microguidewire. Guidewire was removed. The diagnostic 6 Japanese TIG 4.0 catheter was advanced and used to cross the aortic valve and left left ventricular pressures were LVEDP were measured followed by pullback pressures in the aortic root. This same catheter was then used to cannulate the left and then right coronary arteries of which angiograms were obtained of each of these vessels in multiple projections. The angiograms were then reviewed. The diagnostic catheter was then removed over the guidewire. The TR band was then placed in the usual fashion and hemostasis obtained. Hemodynamic data: LV 127/8 , EDP 20 ; AO root 129/73 , mean 96 . Left ventricular angiogram: Not done. Patient echocardiogram this admission with ejection fraction of 60%. Left main coronary artery angiogram: Left main coronary is medium large size vessel bifurcating LAD and circumflex arteries. It is without stenosis or disease. No obstructive disease. Left anterior descending artery angiogram: The LAD is a medium large size vessel proximally. It extends to the posterior apex. Second diagonal is a medium caliber vessel. There are luminal irregularities but there is no obstructive disease present. Calcification is present. Circumflex artery angiogram: Circumflex artery proximally is a medium large size vessel giving rise to a medium caliber long first obtuse marginal branch followed by small medium caliber posterior ventricular branches distally. Some calcifications present. Right coronary artery angiogram: RCA is a medium caliber vessel with luminal irregularities. Mid vessel there is 30% long stenosis this appears to be in- stent. The PDA is a medium caliber vessel. Distally there are small posterior lateral branches. Impression: 1. Left ventriculogram not done with echo done within 48 hours. 2. LVEDP is mildly elevated at 20 mmHg. 3. There is no gradient across the aortic valve. 4. Right coronary artery with mid stent with 30% stenosis otherwise luminal irregularities. HUY-3 flow present. 5. Left main coronary is widely patent. 6. LAD luminal irregularities but widely patent. HUY-3 flow present. 7. Circumflex artery with luminal irregularities but widely patent. HUY- 3 flow present. 8. Patient does not have any coronary disease to account for symptomatology. Discussion: We will marked the patient post catheterization. Again as noted above we did not find coronary disease or dynamic findings to account for this patient's symptomatology. Will continue risk factor modification. Implants: None Anesthesia: local, moderate conscious sedation Surgeon / Physician: Nick Bhatt Pants Cutter: other (Nataliia Jurado RN) Estimated blood loss: minimal Specimens: none sent Condition: stable Disposition: floor - Medications / Follow-up
--- NOTE | 2016-10-03 10:30 | Discharge Summary ---
<Dary Morgan - Last Filed: 10/03/16 12:14> Hospital Course - Hospital Course Hospital Course: Mr. De Los Santos is a 66 year old male w/ PMHx of HTN, RI (w stent 2001), Depression, dyslipidemia; presents to ED on 09/30/16 with c/o chest pain with onset 3 days ago and had a 15 minute episode, with dizziness, nausea, and diaphoretic. In ED: CXR: normal chest xray. EKG: sinus rhythm reat 65 bpm. LABS : H&H 11.6 & 29.2; electrolytes within normal range; BUN 28 & Creatinine 1.40; AST 24; ALT 34; Troponin negative; BNP (30) negative; Hospitalist medicine was consulted for further evaluation. Admit for fluid hydration and workup. Cardiology consulted. -His transient, but severe symptoms are suspicious for arrhythmia, potentially VT, has prior RI. Although the stress test is not high risk, but will need to evaluate for ischemia. He would like to finish up the workup here, we discussed options, we will plan for cardiac catheterization in a.m., we will get interventional consult, Dr. Bhatt. -Macrocytic anemia. He is getting p.o. vitamins, we will start IM vitamin B12. May need GI, hematological workup -Continue aspirin, beta-bobby, statin. LDL well controlled. -SHERITA. He was intolerant of CPAP in the past. This may be readdressed, as an outpatient. -Orthostatic issues. Diastolic dysfunction on echo. Carotid doppler with no significant ICA stenosis. -Cont to monitor BP on current meds -Will need to be discharged after ischemic evaluation with a 30 day event recorder, follow-up with Dr. Matt. ECHO 10/01/16: IMPRESSIONS Normal left ventricular size, with mild concentric hypertrophy, with normal systolic function. Estimated left ventricle ejection fraction 60%. Grade 2 diastolic dysfunction. Mild left atrial enlargement. Mild aortic valve insufficiency. Mild pulmonary hypertension. Mild pulmonic valve insufficiency. Carotid Doppler Study 10/01/16 Impression: 1. Less than 50% stenosis is estimated to involve either the carotid arteries. 2. Normal antegrade flow is noted within the vertebral arteries. Heart Cath 10/03/16 : Impression: 1. Left ventriculogram not done with echo done within 48 hours. 2. LVEDP is mildly elevated at 20 mmHg. 3. There is no gradient across the aortic valve. 4. Right coronary artery with mid stent with 30% stenosis otherwise luminal irregularities. HUY-3 flow present. 5. Left main coronary is widely patent. 6. LAD luminal irregularities but widely patent. HUY-3 flow present. 7. Circumflex artery with luminal irregularities but widely patent. HUY- 3 flow present. 8. Patient does not have any coronary disease to account for symptomatology. 10/03/16 cardiac enzyme remains negative; patient remains chest pain free since admission. He was unable to tolerate CPAP and will need to to address as a outpatient. Plan to discharge home today with a 30 day event monitor and a follow up with Dr Matt. He will need to follow up with PCP: Dr Medellin. I have seen and exmained Mr De Los Santos and formulated the discharge plan. I agree with the summary above from Dary Morgan. In addition, he had normal RUQ US today, normal VQ scan, normal LE dopplers. He had dehydration with TONEY on admission which resolved with IVF. He will see Dr Medellin to pursue further workup. He rejects GERD as a cause of his pain and does not want new therapy for that. In total it took 45 minutes ondischarge- including multiple conversations with the patient regarding test plans and results, care coordination, documentation, medicine reconciliation. Also he was ocunselled regarding tobacco cessation for 5 minutes. Diagnosis - Discharge Diagnosis (1) Chest pain Status: Acute (2) TONEY (acute kidney injury) Status: Acute (3) Dyslipidemia Status: Chronic Specialty Discharge - Follow Up or Referrals Follow up with: Shant Medellin MD [Physician] - 5 Days (PFTs, RUQUS, ) Discharge Plan - Discharge Data Disposition: Disch To Home/Self Care - Discharge Medications New Multivitamin (Berocca) [Berocca] 1 tablet PO DAILY tablet Pantoprazole Tab [Protonix Tab] 40 mg PO DAILY #30 tablet Triamterene/Hydrochlorothiazid [Triamterene-Hctz 37.5-25 mg Cp] 1 each PO DAILY #30 capsule Niacin ER [Niaspan] 500 mg PO BEDTIME #30 tablet Continue NIFEdipine [Nifedipine ER] 1 tablet PO DAILY Aspirin EC Tab 1 tablet PO DAILY Sertraline [Zoloft] 1 tablet PO DAILY Lovastatin 1 tablet PO DAILY Metoprolol Succinate Xl [Toprol Xl] 1 tablet PO DAILY Discontinued Niacin 0.5 tablet PO DAILY - Follow Up or Referral Follow Up: Shant Medellin MD [Physician] - 5 Days (PFTs, RUQUS, ) - Forms/Instructions Instructions: Coronary Artery Disease (GEN), Left Heart Catheterization (DC), Heart Healthy Diet (GEN) Exam - Constitutional Vitals: Period Temp Pulse Resp BP Sys/Delgado Pulse Ox Last 24 Hr 97.9 F-98.6 F 50-61 16-22 116-177/50-76 94-98 Discharge Results Procedures and tests throughout hospitalization: Pending Orders 10/03/16 XR chest post lung scan Routine 10/03/16 04:00 CL heart IN AM 10/04/16 04:00 CL heart IN AM Labs on day of discharge: Labs from last 24 hours 10/03/16 10/03/16 10/01/16 02:50 02:50 02:49 WBC 6.5 RBC 2.38 L Hgb 10.3 L Hct 27.1 L MCV 113.9 H MCH 43 H MCHC 38.0 H RDW 12.5 Plt Count 191 MPV 9.7 Neut % (Auto) 52.4 Lymph % (Auto) 34.5 [place] % (Auto) 7.1 Eos % (Auto) 4.8 Baso % (Auto) 0.6 Neut # (Auto) 3.4 Lymph # (Auto) 2.2 [place] # (Auto) 0.5 Eos # (Auto) 0.3 Baso # (Auto) 0.0 Immature Gran % 0.6 Nucleated RBC % 0.0 Immature Gran # 0.04 Nucleated RBCs # 0.00 Platelet Estimate Adequate Immature Plt Fraction 0.0 Macrocytosis Slight Sodium 144 Potassium 4.2 Chloride 108 H Carbon Dioxide 29 Anion Gap 11.2 BUN 23 H Creatinine 1.30 GFR Calculation 77 BUN/Creatinine Ratio 17.00 Glucose 97 Calculated Osmolality 289.8 Calcium 8.9 Magnesium 2.6 H Thiamine (Vit B1) Ivis 112 DS: Provider Date of admission: 10/01/16 00:20 Primary care physician: . No PCP Attending physician on admission: Jaquelin Santana MD Consults: 10/01/16 00:20 Consult to Physician [CONS] Routine Comment: chest pain, CAD Consulting Provider: Cardiology - [facility] Consult to Specialist Group: Cardiology Person Notified: Juice Date Notified: 10/01/16 Time Notified: 08:45 10/03/16 08:26 Consult to Cardiac Rehabilitation [CONS] Routine Reason for Cardiac Rehabilitation: Risk Factor Modification Discharging clinician: Dary Morgan NP <Eliza Lujan - Last Filed: 10/03/16 15:48> Hospital Course - Time spent with patient Time with patient DS: Greater than 30 minutes Diagnosis - Discharge Diagnosis (1) Chest pain Status: Resolved (2) TONEY (acute kidney injury) Status: Resolved (3) HTN (hypertension) Status: Chronic (4) CAD (coronary artery disease) Status: Chronic (5) Obstructive sleep apnea Status: Chronic (6) Tobacco use Status: Chronic Discharge Plan - Discharge Data Condition at Discharge: Stable Discharge Diet: heart healthy Activity: resume usual activities as tolerated - Forms/Instructions Additional Discharge Instructions: schedule outpatient PFTs Exam - Constitutional General appearance: no acute distress, morbidly obese - Head Head exam: Present: normocephalic, atraumatic - Eye Eye exam: Present: EOMI. Absent: scleral icterus - Respiratory Respiratory exam: Present: clear to auscultation bilaterally - Cardiovascular Cardiovascular exam: Present: regular rate and rhythm - GI/Abdominal GI/Abdominal exam: Present: normal bowel sounds, soft. Absent: tenderness - Extremities Exam Extremities exam: Absent: edema
--- NOTE | 2016-10-03 11:07 | Ultrasound Report ---
Right upper quadrant ultrasound Indication: Abdominal Pain, cholecystitis Findings: The liver is normal in size and echogenicity. The gallbladder is fluid-filled without evidence of stones or sludge. The gallbladder wall thickness is 1.0 mm . The common bile duct measures 4.0 mm. The visualized portion of the pancreas appear within normal limits The right kidney is normal in size and echogenicity and measures 10.8 cm . No free fluid or free air seen. Impression: No evidence of abnormality demonstrated. Ultrasound images stored and captured. PROCEDURE INTERPRETED AT [facility] DEPARTMENT OF RADIOLOGY Final Report Signed by: Dr. Melvin Tomas
--- NOTE | 2016-10-03 11:15 | Ultrasound Report ---
History: Edema. Chest pain Date: 10/03/2016 Study: Bilateral lower extremity color-flow venous Doppler study Comparison exam: No previous similar Color Doppler, wave form analysis, and compression analysis of the deep veins of both lower extremities from the common femoral vein level through the popliteal vein level shows that the veins are readily compressible. There is no abnormal intraluminal material to suggest thrombus. Waveform analysis is unremarkable. Ultrasound images were captured and archived Impression: Normal bilateral lower extremity color flow venous Doppler study. No evidence of acute DVT PROCEDURE INTERPRETED AT [facility] DEPARTMENT OF RADIOLOGY Final Report Signed by: Dr. Stephanie Spears
--- NOTE | 2016-10-03 11:52 | Nuclear Medicine Report ---
Nuclear medicine ventilation/perfusion scan Indication: Shortness of breath Findings: Ventilation scan: The patient received 40.0 mCi of 90 9M technetium DTPA aerosolized. There is normal distribution of radiotracer in both lungs. Perfusion scan: Patient received 5.0 mCi of 90 9M technetium MAA intravenously. There is normal in distribution of radiotracer in both lungs without evidence of segmental or greater defects. Impression: Normal nuclear medicine ventilation perfusion scan. This indicates low probability for pulmonary embolism. PROCEDURE INTERPRETED AT [facility] DEPARTMENT OF RADIOLOGY Final Report Signed by: Dr. Melvin Tomas
[2016-10-03] MEDS: NIACIN 500 MG TABLET PO SCH (12:40)
[2016-10-03] MEDS: METOPROLOL SUCCINATE XL 25 MG TABLET PO SCH (12:41)
[2016-10-03] MEDS: LOVASTATIN 20 MG TABLET PO SCH (12:41)
[2016-10-03] MEDS: SERTRALINE 100 MG TABLET PO SCH (12:41)
[2016-10-03] MEDS: MULTIVITAMIN (BEROCCA) TABLET PO SCH (12:42)
[2016-10-03] MEDS: ASPIRIN EC 81 MG TABLET PO SCH (12:42)
[2016-10-03] MEDS: PANTOPRAZOLE 40 MG TABLET PO SCH (12:42)
--- NOTE | 2016-10-03 12:55 | XRay Report ---
XR chest post lung scan Indication: Shortness of breath, pulmonary embolism Comparison: 30 September 2016 Findings: The heart and mediastinum are normal in size and configuration. The pulmonary vascularity is normal in caliber. No lung infiltrates, effusions, pneumothorax or other abnormality is demonstrated. Impression: Normal chest x-ray PROCEDURE INTERPRETED AT [facility] DEPARTMENT OF RADIOLOGY Final Report Signed by: Dr. Melvin Tomas
--- NOTE | 2016-10-03 14:42 | Event Note ---
Patient cardiac catheterization was unremarkable. The patient did well post catheterization without any specific complaints or problems. Right arm is stable. Could be discharged today from catheterization standpoint. Did discuss findings with the patient and family.
[2016-10-03 17:55] VITALS: BP 143/68
--- NOTE | 2016-10-03 18:08 | Event Note ---
Jose Palmer Vanessa, RN, am scribing for, and in the presence of, Joe Lane MD 18 :08. 66-year-old male, followed by Dr. Matt. Presented with dizziness, orthostatic issues, shoulder pain, discomfort. History of CAD, PCI in 2001 with RCA stent. No ischemic EKG changes, normal cardiac biomarkers. Recently elevated blood pressures, lower extremity numbness in the toes. SHERITA, he was not tolerant of CPAP. Morbid obesity. Macrocytic anemia. [employer] 10/02: old inferior disease, mild apical ischemia. LHC 10/03: RCA with 30% in stent restenosis. No other significant or obstructive CAD. -Stable after LHC -Will need to be discharged with 30 day event monitor. -Follow up with Ariana Chavis Attila, MD, personally performed the services described in this documentation, ascribed by Radha Garcia RN in my presence, and it is both accurate and complete 808 .
== END 2016-10-03 18:50 | disposition home or self-care (01) ==
LOC: N.ED 21:48 → N.EDINP 21:48 → SUATTDRO 10-01 00:20 → N.TELEN 10-01 01:36
PROVIDERS: ADMIT Family Medicine; ATTEND Internal Medicine
PROC: CLCCHCL (ICD-10-PCS; 2016-10-03 08:15)

== ENCOUNTER 2018-03-15 10:02 | Observation (INO) ==
[2018-03-15] MEDS ORDERED: ONDANSETRON 4 MG/2 ML VIAL IV STA (10:49)
[2018-03-15] MEDS ORDERED: SODIUM CHLORIDE 0.9% 500 ML IV STA (10:49)
[2018-03-15] MEDS ORDERED: ASPIRIN 325 MG TABLET PO STA (10:49)
[2018-03-15 11:03] LABS: Basophils # 0.1 10*3/uL (0.0-0.2); Basophils % 0.6 % (0.0-0.8); Eosinophils # 0.2 10*3/uL (0.0-0.87); Hematocrit 35.5 VOL% (42.0-52.0); Hemoglobin 12.9 GM/DL (14.0-18.0); Immature Granulocytes % 0.5 %; Immature Granulocytes Absolute 0.04 #; Lymphocytes # 1.1 10*3/uL (1.4-4.0); Lymphocytes % 13.8 % (21.2-54.2); Mean Corpuscular HGB Conc 36.3 GM/DL (32-36); Mean Corpuscular Hemoglobin 41 PG (27-34); Mean Platelet Volume 9.2 FL (9.6-12.0); Monocytes # 0.3 10*3/uL (0.11-0.8); Monocytes % 3.6 % (1.7-12.7); Neutrophils # 6.2 10*3/uL (1.4-7.4); Neutrophils % 79.5 % (38.7-73.9); Platelet Count 214 T/CUMM (130-400); Red Blood Count 3.17 MC/CUMM (3.8-5.5); Red Cell Distribution Width 15.2 % (9.3-17.3); White Blood Count 7.8 T/CUMM (4-12)
[2018-03-15 11:11] LABS: PT Patient Result 10.7 SECS; Partial Thromboplastin Time 22.9 SECS (0-40)
[2018-03-15 11:22] LABS: Macrocytosis Slight
[2018-03-15 11:23] LABS: Platelet Estimate Normal
[2018-03-15 11:27] LABS: Alanine Aminotransferase 19 U/L (16-61); Albumin 4.1 G/DL (3.4-5.0); Alkaline Phosphatase 70 U/L (45-117); Aspartate Amino Transferase 11 U/L (0-37); Blood Urea Nitrogen 21 MG/DL (7-18); Calcium 8.8 MG/DL (8.5-10.1); Glucose 141 MG/DL (74-106); Osmolality,Calculated 277.8 MOS/KG (273-304); Potassium 4.1 MMOL/L (3.5-5.1); Sodium 137 MMOL/L (136-145); Total Protein 7.1 G/DL (6.4-8.3)
[2018-03-15 11:54] LABS: Apearance,Urine CLEAR (Clear); Blood, Urine Negative (Negative); Glucose,Urine (UA) Negative (Negative); Hyaline Casts,Urine 32 /LPF (0-3); Ketones,Urine 5 mg/dL (Negative); Mucus,Urine Many /LPF (Occasional); Nitrite,Urine Negative (Negative); Protein,Urine Negative; RBC,Urine 1 /HPF (0-4); Squamous Epithelial Cell,Urine Occasional /HPF (0-10); Urine Color Amber (Yellow); Urine Specific Gravity 1.026 (1.001-1.035); WBC,Urine 2 /HPF (0-6)
[2018-03-15 11:55] LABS: Bilirubin,Urine Small mg/dL (Negative)
[2018-03-15 13:07] LABS: Barbiturates Screen,Urine Negative (Negative); Benzodiazepines Screen,Urine Positive (Negative); Cannabinoid Screen,Urine Negative (Negative); Opiate Screen,Urine Negative (Negative); Phencyclidine Screen,Urine Negative (Negative)
[2018-03-15] MEDS ORDERED: ZALEPLON 5 MG CAPSULE PO PRN (13:17)
[2018-03-15] MEDS ORDERED: ACETAMINOPHEN 325 MG TABLET PO PRN (13:17)
[2018-03-15] MEDS ORDERED: ONDANSETRON 4 MG/2 ML VIAL IV PRN (13:17)
[2018-03-15] MEDS ORDERED: DOCUSATE SODIUM 100 MG CAPSULE PO PRN (13:17)
[2018-03-15] MEDS ORDERED: ENOXAPARIN 40 MG/0.4 ML SYRINGE SUBCUT SCH (13:30)
[2018-03-15 13:48] LABS: Risk Ratio 2.45
[2018-03-15] MEDS: SODIUM CHLORIDE 0.9% 1,000 ML IV SCH ×2 (15:10→23:10)
[2018-03-15] MEDS ORDERED: traZODone 50 MG TABLET PO SCH (21:00)
[2018-03-16 05:42] LABS: Basophils % 0.7 % (0.0-0.8); Eosinophils # 0.2 10*3/uL (0.0-0.87); Eosinophils % 3.7 % (0.00-10.9); Hemoglobin 11.5 GM/DL (14.0-18.0); Immature Granulocytes % 0.5 %; Immature Granulocytes Absolute 0.03 #; Lymphocytes # 1.7 10*3/uL (1.4-4.0); Lymphocytes % 30.3 % (21.2-54.2); Mean Corpuscular HGB Conc 34.8 GM/DL (32-36); Mean Corpuscular Hemoglobin 40 PG (27-34); Mean Corpuscular Volume 115.8 FL (87-102); Monocytes # 0.3 10*3/uL (0.11-0.8); Monocytes % 5.2 % (1.7-12.7); Neutrophils # 3.4 10*3/uL (1.4-7.4); Neutrophils % 59.6 % (38.7-73.9); Platelet Count 189 T/CUMM (130-400); Red Blood Count 2.85 MC/CUMM (3.8-5.5); Red Cell Distribution Width 15.4 % (9.3-17.3); White Blood Count 5.7 T/CUMM (4-12)
[2018-03-16 06:08] LABS: Calcium 8.4 MG/DL (8.5-10.1); Osmolality,Calculated 279.4 MOS/KG (273-304); Potassium 4.3 MMOL/L (3.5-5.1)
[2018-03-16 06:10] LABS: % Iron Saturation 51.9 % (18-50)
[2018-03-16 06:22] LABS: Folate 11.9 NG/ML (5.4-24.0); Vitamin B12 72 PG/ML (211-911)
[2018-03-16 07:31] LABS: Sedimentation Rate-Westergren 18 MM/HR (0-20)
[2018-03-16] MEDS ORDERED: SIMVASTATIN 20 MG TABLET PO SCH (09:00)
[2018-03-16] MEDS ORDERED: ASPIRIN EC 81 MG TABLET PO SCH ×2 (09:00)
[2018-03-16] MEDS ORDERED: SERTRALINE 100 MG TABLET PO SCH (09:00)
[2018-03-16 09:44] LABS: Hemoglobin A1 (Alkaline) 97.8 % (96.5-98.5); Hemoglobin A2 (Alkaline) 2.2 % (1.5-3.5)
[2018-03-16 15:52] VITALS: BP 144/75
== END 2018-03-16 17:01 | disposition home or self-care (01) ==
LOC: N.ED 10:02 → N.EDINP 10:02 → SUATTDRO 13:10 → N.4E 13:45
PROVIDERS: ADMIT Hospitalist; ATTEND Internal Medicine